=== PATIENT | female | born 1990 | race Caucasian/White ===

== ENCOUNTER 2017-03-24 08:18 | Outpatient (CLI) | payer OTHER ==
[2017-03-24] MEDS: diphenhydrAMINE 25 MG CAP PO (09:17)
[2017-03-24] MEDS: ACETAMINOPHEN TAB 650MG DOSE (2X325MG) PO (09:17)
[2017-03-24] MEDS: NS 1,000 ML IV (09:26)
[2017-03-24] MEDS: INFLIXIMAB BIOSIMILAR 400 MG in NS 210 ML IV (09:26)
== END 2017-03-24 12:00 | disposition home or self-care (01) ==
LOC: M INFU 08:18
DX: K51.311 Ulcerative (chronic) rectosigmoiditis with rectal bleeding (principal)
CPT/HCPCS: Q5102

== ENCOUNTER 2017-05-19 12:49 | Outpatient (CLI) | payer OTHER ==
[2017-05-19] MEDS: NS 1,000 ML IV (13:47)
[2017-05-19] MEDS: diphenhydrAMINE INJ 50MG/ML VIAL (J1200) IV (13:48)
[2017-05-19] MEDS: ACETAMINOPHEN TAB 650MG DOSE (2X325MG) PO (13:49)
[2017-05-19] MEDS: inFLIXimab INJECTION 400 MG in NS 210 ML IV (13:55)
== END 2017-05-19 16:10 | disposition home or self-care (01) ==
LOC: M INFU 12:49
DX: K51.311 Ulcerative (chronic) rectosigmoiditis with rectal bleeding (principal)
CPT/HCPCS: J1200

== ENCOUNTER 2017-09-08 06:20 | Outpatient (CLI) | payer OTHER ==
[2017-09-08] MEDS: FILTER 1.2 MICRON (ADULT TPN/MANNITOL/REMICADE) XX (07:15)
[2017-09-08] MEDS ORDERED: NS 1,000 ML IV (07:15)
[2017-09-08] MEDS: ACETAMINOPHEN TAB 650MG DOSE (2X325MG) PO (07:34)
[2017-09-08] MEDS: diphenhydrAMINE INJ 50MG/ML VIAL (J1200) IV (07:35)
[2017-09-08] MEDS: inFLIXimab INJECTION 400 MG in NS 210 ML IV (07:35)
== END 2017-09-08 10:00 | disposition home or self-care (01) ==
LOC: M INFU 06:20
DX: K51.30 Ulcerative (chronic) rectosigmoiditis without complications (principal); Z79.899 Other long term (current) drug therapy
CPT/HCPCS: J1200

== ENCOUNTER 2017-11-03 06:19 | Outpatient (CLI) | payer OTHER ==
[2017-11-03] MEDS ORDERED: NS 1,000 ML IV (06:30)
[2017-11-03] MEDS ORDERED: FILTER 1.2 MICRON (ADULT TPN/MANNITOL/REMICADE) XX (06:30)
[2017-11-03] MEDS: ACETAMINOPHEN TAB 650MG DOSE (2X325MG) PO (06:44)
[2017-11-03] MEDS: diphenhydrAMINE INJ 50MG/ML VIAL (J1200) IV (06:45)
[2017-11-03] MEDS: inFLIXimab INJECTION 400 MG in NS 210 ML IV (07:00)
== END 2017-11-03 10:15 | disposition home or self-care (01) ==
LOC: M INFU 06:19
DX: K51.311 Ulcerative (chronic) rectosigmoiditis with rectal bleeding (principal)
CPT/HCPCS: J1200

== ENCOUNTER 2017-12-29 06:29 | Outpatient (CLI) | payer OTHER ==
[2017-12-29] MEDS: FILTER 1.2 MICRON (ADULT TPN/MANNITOL/REMICADE) XX (06:45)
[2017-12-29] MEDS ORDERED: NS 1,000 ML IV (06:45)
[2017-12-29] MEDS: diphenhydrAMINE 25MG IV PRIOR TO INFUSION IV (07:25)
[2017-12-29] MEDS: ACETAMINOPHEN 650MG PO PRIOR TO INFUSION PO (07:26)
[2017-12-29] MEDS: inFLIXimab INJECTION 400 MG in NS 210 ML IV (07:51)
== END 2017-12-29 10:15 | disposition home or self-care (01) ==
LOC: M INFU 06:29
DX: K51.311 Ulcerative (chronic) rectosigmoiditis with rectal bleeding (principal)
CPT/HCPCS: J1200